=== PATIENT | female | born 1960 | race Two or more races ===

== ENCOUNTER 2016-12-21 06:00 | Day surgery (SDC) | payer BC ==
[~2016-12-21] VITALS: Ht 157.5 cm; Wt 95.3 kg
[2016-12-21] VITALS (11 sets, daily range): BP systolic 104–147; BP diastolic 51–72
[2016-12-21] MEDS ORDERED: TEMAZEPAM30 MG ORAL (07:03)
[2016-12-21] MEDS ORDERED: XANAX0.5 MG ORAL (07:03)
[2016-12-21] MEDS ORDERED: ADALAT20 MG ORAL (07:03)
[2016-12-21] MEDS ORDERED: CEFAZOLIN 1 GM/50 ML IV ONE (07:06)
[2016-12-21] MEDS ORDERED: Lidocaine 1% Plain 30 ml INJ ONE (07:06)
[2016-12-21] MEDS ORDERED: Bupivacaine w/Epi 0.75% 30ml Vial INJ ONE (07:06)
[2016-12-21] MEDS ORDERED: Bupivacaine 0.25% Inj 30ml INJ ONE (07:06)
[2016-12-21] MEDS ORDERED: NeoSporin Gu Irrig 1ml Amp IRRIG ONE (07:07)
[2016-12-21] MEDS ORDERED: Bacitracin 50000 Units Vial ONE (07:07)
[2016-12-21] MEDS ORDERED: Midazolam 2mg/2ml Inj ONE (07:30)
[2016-12-21] MEDS ORDERED: NS Irrig 1000ml ONE (07:30)
[2016-12-21] MEDS ORDERED: Ketorolac 30mg Inj ONE (07:30)
[2016-12-21] MEDS ORDERED: Propofol 200mg/20ml IV ONE (07:30)
[2016-12-21] MEDS ORDERED: Sterile Water Irrig 1000ml IRRIG ONE (07:30)
[2016-12-21] MEDS ORDERED: Lidocaine 1% MPF 10mg/ml 5ml ONE (07:30)
[2016-12-21] MEDS ORDERED: fentaNYL 100 mcg/2 mL IV ONE (07:30)
[2016-12-21] MEDS ORDERED: LR 1000ml ONE (07:30)
--- NOTE | 2016-12-21 07:40 | Anethesia Preoperative Eval ---
Anesthesia Pre-op PMH/ROS General Date of Evaluation: Dec 21, 2016 Time of Evaluation: 07:37 Anesthesiologist: Breanna ASA Score: ASA 2 Mallampati Score Class I : Soft palate, uvula, fauces, pillars visible Class II: Soft palate, uvula, fauces visible Class III: Soft palate, base of uvula visible Class IV: Only hard plate visible Mallampati Classification: Class III Surgeon: Sabas Diagnosis: Multiple softy tissue masses Surgical Procedure: Excision of soft tissue masses Anesthesia History: none Family History: no anesthesia problems Allergies: Coded Allergies: SULFA (SULFONAMIDE ANTIBIOTICS) (Verified Allergy, Unknown, 12/18/16) TRIMETHOPRIM (Verified Allergy, Unknown, 12/18/16) Medications: see eMAR Past Medical History Cardiovascular: Reports: HTN, Denies: CAD, [place], valve dz, arrhythmia, other Pulmonary: Reports: KEN, Denies: asthma, COPD, other Gastrointestinal/Genitourinary: Reports: GERD, Denies: CRI, ESRD, other Neurologic/Psychiatric: Reports: depression/anxiety, Denies: dementia, CVA, TIA, other Endocrine: Denies: DM, hypothyroidism, steroids, other HEENT: Denies: cataract (L), cataract (R), glaucoma, [facility] (L), [facility] (R), other Hematology/Immune: Denies: anemia, DVT, bleeding disorder, other Musculoskeletal/Integumentary: Reports: DJD, Denies: OA, RA, DDD, edema, other Other: obesity PMH Narrative: as above PSxH Narrative: none Anesthesia Pre-op Phys. Exam Physician Exam Last Vital Signs Date Time Temp Pulse Resp B/P (MAP) Pulse Ox O2 Delivery O2 Flow Rate FiO2 12/21/16 07:04 97.8 73 18 122/72 97 Room Air Constitutional: NAD Neurologic: CN 2-12 intact Cardiovascular: RRR, no M/R/G Respiratory: CTA Gastrointestinal: other - obesity Airway Exam Mallampati Score: Class III MO: full Neck: short ROM: limited Teeth: intact Dentures: no upper, no lower Anesthesia Pre-op A/P Labs see chart Studies Pre-op Studies: EKG - NSR Risk Assessment & Plan Assessment: ASA 2 Plan: GA with LMA Status Change Before Surgery: No Pre-Antibiotics Drug: Ancef 2 gr. Given Within 1 Hr of Incision: Yes Time Given: 07:50 FARHAT WOLFF M.D. Dec 21, 2016 07:40
--- NOTE | 2016-12-21 07:48 | Pre-Procedure Note/Attestation ---
Pre-Procedure Note/Attestation Complete Prior to Procedure Planned Procedure: bilateral Procedure Narrative: excision of multiple vulvar cysts and left flank cyst Indications for Procedure Pre-Operative Diagnosis: multiple vulvar cysts, left flank cyst Attestation I attest that I discussed the nature of the procedure; its benefits; risks and complications; and alternatives (and the risks and benefits of such alternatives ), prior to the procedure, with the patient (or the patient's legal business services representative). I attest that, if there was a reasonable possibility of needing a blood transfusion, the patient (or the patient's legal business services representative) was given the [facility] standardized written summary, pursuant to the [place] Blood Safety Act ([place] Health and Safety Code # 1645, as amended). I attest that I re-evaluated the patient just prior to the surgery and that there has been no change in the patient's H&P, except as documented below:none CAL MCDERMOTT Dec 21, 2016 07:48
[2016-12-21] MEDS ORDERED: LR 1000ml 1,000 ML IVLG SCH (08:18)
[2016-12-21] MEDS ORDERED: Ketorolac 30mg Inj IV PRN (08:30)
[2016-12-21] MEDS ORDERED: DiphenhydrAMINE 50mg/ml Inj IVP PRN (08:30)
[2016-12-21] MEDS ORDERED: Hydromorphone 0.5mg/0.5ml inj IVP PRN (08:30)
[2016-12-21] MEDS ORDERED: Meperidine 50mg/ml Inj(FOR RIGORS ONLY) IV PRN (08:30)
[2016-12-21] MEDS ORDERED: Midazolam 2mg/2ml Inj IVP PRN (08:30)
[2016-12-21] MEDS ORDERED: Tylenol #3 tab (300mg/30mg) ORAL PRN (08:45)
[2016-12-21] MEDS ORDERED: HYDROmorphone 1mg/ml Carpuject SUBQ PRN (08:45)
[2016-12-21] MEDS ORDERED: D5 1/2NS 1,000 ML IV SCH (08:45)
--- NOTE | 2016-12-21 08:45 | Brief Operative Note ---
Immediate Post Operative Note Operative Note Pre-op Diagnosis: multiple vulvar cysts, left flank cyst Procedure: excision of multiple vulvar cysts, left flank mass Post-op Diagnosis: same as pre-op Surgeon: jennie Anesthesiologist: NEW Anesthesia: general, local Specimen: yes Complications: none Condition: stable Fluids: PER ANESTHESIA Estimated Blood Loss: minimal Implant(s) used?: No CAL MCDERMOTT Dec 21, 2016 08:45
--- NOTE | 2016-12-21 09:01 | Immediate Post-Op Evaluation ---
Immediate Post-Op Evalulation Immediate Post-Op Evalulation Procedure: Excision of multiple soft tissue masses R flank and vulva Date of Evaluation: Dec 21, 2016 Time of Evaluation: 09:00 IV Fluids: 1000 Blood Products: none Estimated Blood Loss: min Urinary Output: none Blood Pressure Systolic: 117 Blood Pressure Diastolic: 68 Pulse Rate: 76 Respiratory Rate: 20 O2 Sat by Pulse Oximetry: 99 Temperature (Fahrenheit): 97.6 Pain Score (1-10): 2 Nausea: No Vomiting: No Complications none Patient Status: awake, patent, none Hydration Status: adequate FARHAT WOLFF M.D. Dec 21, 2016 09:01
[2016-12-21] MEDS ORDERED: Norco 5mg/325mg tab ORAL PRN (10:15)
--- NOTE | 2016-12-21 12:49 | 48 Hour Post Anesthesia Eval ---
Post Anesthesia Evaluation Procedure: Excision of multiple soft tissue masses R flank and vulva Date of Evaluation: Dec 21, 2016 Time of Evaluation: 12:48 Blood Pressure Systolic: 107 0: 58 Pulse Rate: 72 Respiratory Rate: 20 Temperature (Fahrenheit): 97.6 O2 Sat by Pulse Oximetry: 99 Airway: patent Nausea: No Vomiting: No Pain Intensity: 2 Hydration Status: adequate Cardiopulmonary Status: stable Mental Status/LOC: patient returned to baseline Follow-up Care/Observations: n/a Post-Anesthesia Complications: none Follow-up care needed: ready to discharge FARHAT WOLFF M.D. Dec 21, 2016 12:49
--- NOTE | 2016-12-22 08:15 | Operative Note - Dictated ---
DATE OF OPERATION: 12/21/2016 SURGEON: Tommy Obregon M.D. BOX CAR LOADER: Des Carlos M.D. ANESTHESIA: General anesthesia and local. PREOPERATIVE DIAGNOSES: 1. Multiple vulvar cysts. 2. Left flank mass. POSTOPERATIVE DIAGNOSES: 1. Multiple vulvar cysts. 2. Left flank mass. PROCEDURE PERFORMED: Excision of multiple vulvar cysts and excision of left flank mass. INDICATION: This is a very pleasant 56-year-old woman seen at [facility]. The patient presents with multiple cystic masses of bilateral vulvae. She also has a mass on her right flank that has occasionally drained consistent with a ruptured epidermoid cyst. The patient has requested treatment for the same. The procedure, risks, benefits, and complications were discussed in detail. She understands the above and agrees to proceed. OPERATIVE FINDINGS: Multiple cystic masses suggestive of chronic hypertrophic sebaceous glands of the vulva. There is also a sebaceous cyst of the left flank . PROCEDURE IN DETAIL: The patient was seen in the preoperative holding area. The site was marked. She was brought to the operating room and induced general anesthesia and LMA was placed. She was placed in a dorsal lithotomy position. She was prepped and draped in the usual sterile manner. Time-out performed confirming the patient's position, procedure, anesthesia, antibiotic, and allergy status. Local injection of 2 mL of 1% lidocaine. An elliptical incision was made around the left flank mass, carried down through skin and subcutaneous tissue. The mass was removed in its entirety consistent with epidermoid cyst, sent to pathology for examination. Bleeding controlled with electrocautery. After making sure there was no evidence of bleeding, the subcutaneous tissue was approximated with 3-0 Vicryl, the skin was closed with interrupted 4-0 Nylon and covered with dry sterile dressing. Attention was then focused to the vulvar area. There were rows of masses 2 mm to 4 mm in diameter consistent with multiple cysts. The majority of these fell inside of a single plane that allowed for elliptical incision through the vulvar skin excising a wedge of tissue that removed most of the cyst. There was several other cysts that were individually excised. Bleeding was controlled with electrocautery. After making sure there was no evidence of bleeding, sponge and needle counts correct, the subcutaneous tissue was approximated with interrupted 4-0 chromic, and the skin was then closed with interrupted 4-0 chromic. The identical procedure was then performed on the other side removing another ellipse of the skin and closing all of the vulvar lesions and closing with 4-0 chromic. Blood loss for the entire procedure was less than 5 mL. The patient tolerated the procedure well. Tommy Obregon M.D. DR: Phyllis JOB#: [id number] CC: Tommy Obregon M.D.; Fax#: [phone] [facility]
== END 2016-12-21 13:30 | disposition home or self-care (01) ==
LOC: SUR 06:00
DX: N90.7 Vulvar cyst (principal); Z88.2 Allergy status to sulfonamides; I10 Essential (primary) hypertension; G47.33 Obstructive sleep apnea (adult) (pediatric); K21.9 Gastro-esophageal reflux disease without esophagitis; M19.90 Unspecified osteoarthritis, unspecified site; F32.9 Major depressive disorder, single episode, unspecified; F41.9 Anxiety disorder, unspecified; Z88.8 Allergy status to other drugs, medicaments and biological substances
CPT/HCPCS: 11421; 11424; 11426; J0690; J1885; J2001; J2250; J2704; J3010; J7120; 94003; 94150